=== PATIENT | female | born 1990 | race Caucasian/White ===

== ENCOUNTER 2016-10-29 00:35 | Inpatient (IN) | payer OTHER ==
[~2016-10-29] VITALS: Ht 167.6 cm; Wt 82.1 kg
[2016-10-29] MEDS ORDERED: Lactated Ringer's 1,000 ML IV PRN (01:31)
[2016-10-29] MEDS ORDERED: Hemorrhage Kit, Post Partum XX ONE ×2 (01:35→15:15)
[2016-10-29] MEDS ORDERED: Oxytocin 10 Unit/mL Inj IM PRN ×2 (01:35→15:15)
[2016-10-29] MEDS ORDERED: Methylergonovine 0.2 mg/mL Inj IM PRN ×2 (01:35→15:15)
[2016-10-29] MEDS ORDERED: fentaNYL-PF 50 mCg/mL 2 mL Inj IVPUSH PRN (01:35)
[2016-10-29] MEDS ORDERED: Carboprost 250 mCg/mL Inj IM PRN ×2 (01:35→15:15)
[2016-10-29] MEDS ORDERED: Oxytocin 30 Units/500 mL LR 30 UNITS in IV Premix 1 EACH IV PRN ×3 (01:35→15:15)
[2016-10-29] MEDS ORDERED: Sodium Chloride LOK Flush 10 mL Syringe IVFLUSH PRN (01:35)
[2016-10-29 01:42] LABS: Mean Corpuscular Hemoglobin 28.4 pg (27.0-35.0); Mean Corpuscular Volume 86.5 fL (81-100)
--- NOTE | 2016-10-29 07:29 | PCM.HPOB ---
Subjective Referring Provider: Admitting Physician: Cat Carrion MD Primary Care Physician: Cat Carrion MD Attending Physician: Cat Carrion MD Chief Complaint "water broke" History of Present History of Present Illness Ms. Perez is a 26 y/o woman at 37 weeks 4 days gestation with KENY of 11/15 that was adjusted from her KENY based on LMP who presented to the [facility] after her water broke at around 11:30 PM last night. She states that there was a gush of fluid that was cloudy and clear. It did not have a foul odor. She did not start having contractions until she came to the hospital early this morning. She does not have headache, changes in vision, dizziness, chest pain, upper abdominal pain, or increased leg swelling. She has had increased heartburn during her . Based on ultrasounds, the baby has been in the 99% EFW at 20 weeks gestation and 86% EFW at 35 weeks gestation. labs: blood type A positive, antibody screen negative, Pap smear negative, RPR nonreactive, HIV nonreactive, HBsAg negative, gonorrhea and chlamydia negative, hepatitis C negative, Varicella immune, Rubella immune, TSH 2.060, 1 hour glucose tolerance test within normal limits, GBS negative OB History: (1), Para (0) Past Medical History Obstetrical History: growth by ultrasounds shows 99% EFW at 20 weeks gestation and 86% EFW at 35 weeks gestation Gynecologic History: No history STIs Patient reports receiving Gardisil vaccine and no known abnormal Pap smears Medical History: GERD during Surgical History: Tonsillectomy Hx Tobacco Use: No Smoking Status: Never Smoker Hx Alcohol Use: No Hx Substance Use: No Past Family History Family History Denies any significant family history Living Arrangement: with Family Genetic Screening/Counseling Comment: Declined genetic screening Review of Systems Constitutional: Y: Chills, Dizziness, Fever Eyes: Denies: Blurred Vision, Double Vision, Vision Changes ENT: Denies: Throat Pain Cardiovascular: Denies: Chest Pain, SOB while laying flat Respiratory: Denies: Cough, Pleuritic Chest Pain Gastrointestinal: Reports: Heartburn, Nausea, Vomiting, Denies: Abdominal Pain, Epigastric pain Genitourinary: Denies: Dysuria Neurological: Denies: Dizziness, Numbness Medications Home medications vitamin Ranitidine as needed for heartburn Allergy Coded Allergies: No Known Allergies (Unverified , 10/29/16) Exam Vital Signs T: 37.2 degrees C, BP: 128/76, HR: 64 bpm Exam FHR baseline 140s with moderate variability, accelerations, and no decelerations Constitutional: Well-developed, Well-nourished HEENT: Atraumatic, EOMI, Scleral Anicteric, Mucous Membr Moist/[place] Lungs: Clear to Auscultation, Normal Air Movement Heart: Exam Unremarkable, Regular Rate/Rhythm, Normal S1, Normal S2, No Murmurs /Rubs/Gallops Abdomen: Gravid, Normal bowel sounds Extremities: Pulses Palpable x4, Warm, Edema (trace bilateral lower extremity) Neurological/Psychiatric: Alert, Oriented X3, Cooperative, Mild Distress ( secondary to pain from contractions) Neuro: Grossly Neurologically Intact Additional Information Cervical exam at 05:39 by nursing showed 1 cm, 60 effacement, and -2 position Labs/Diagnostics Labs Item Value Date Time White Blood Count 10.5 th/mm3 H 10/29/16 0118 Hemoglobin 11.2 g/dL L 10/29/16 0118 Hematocrit 34.1 % L 10/29/16 0118 Platelet Count 239 florencia/L 10/29/16 0118 Maternal Blood Type: A (positive) Group B Strep Results: Negative Rubella: Immune Lab History: Negative for: Hx Gonorrhea, Hx HIV, Hx Herpes, Hx Syphilis OB Intrapartum Assessment/Plan Assessment 1. 26 y/o woman at 37 weeks 4 days gestation with KENY of 11/15/2016 that was adjusted from her KENY based on LMP. growth by ultrasounds shows 99% EFW at 20 weeks gestation and 86% EFW at 35 weeks gestation. -In latent phase of labor. -Contraction frequency 3-4 with duration of 60 -Category 1 tracing is normal and reassuring. FHR baseline 140s; variability is normal; accelerations present; no decelerations. -Continue expected management Attending Statement Patient seen and examined. She is doing well, she presents with SROM this AM and contractions Q2-4 minutes. On exam her cervix is 1 and posterior so Carmichael balloon placed at bedside and inflated to 50cc of normal saline. heart tones are reassuring. Will continue expectant management, await carmichael balloon removal, anticipate . Linda Dudley DO Oct 29, 2016 07:29 Cat Carrion MD Oct 31, 2016 11:58
[2016-10-29] MEDS ORDERED: Lactated Ringer's 1,000 ML IV SCH ×2 (09:04→15:11)
[2016-10-29] MEDS ORDERED: Lactated Ringer's 500 ML IV ONE (09:04)
--- NOTE | 2016-10-29 09:04 | PCM.HPANE ---
Patient Data Date of Service: Oct 29, 2016 (0840) Surgeon Admitting Provider:Cat Carrion MD Attending Provider:Cat Carrion MD Primary Care Physician:Cat Carrion MD Other Provider:Jemma Reed Anesthesia Reason for Visit TERM TERM Ht/WT & BMI Body Mass Index Allergies Coded Allergies: No Known Allergies (Unverified , 10/29/16) Past Anesthesia History Anesthesia History: Denies:: Abnormal Airway, Anesthesia Reactions, Difficult Intubation, Fam Anesthesia Reaction, Fam Malignant Hypertherm, Malignant Hyperthermia Medications Hypertension Medication: No Home Meds Incl Beta Mita: No History History of ENT Problems?: No HEENT History: Denies:: Abnormal Airway Cataracts Difficult Intubation Dysphagia Glaucoma Hearing Problem Sinus Problem TMJ Denture Type: None Teeth Condition: Within Normal Limits Hx of Heart Problems?: No Cardiovascular History: Denies:: AICD Abdominal Aortic Aneurism Atrial Fibrillation Cardiac Surgery Chest Pain Congestive Heart Failure Coronary Artery Disease Edema Heart Murmur Hypertension Irregular Heartbeat Pacemaker Peripheral Vascular Rheumatic Fever Thrombophlebitis Valvular Heart Disease Hx of Respiratory Problem?: No Respiratory History: Denies:: Asthma COPD Chest Surgery Cough Dyspnea Emphysema Hemoptysis Oxygen Administration Pneumonia Pulmonary Embolism Tuberculosis Use of C-PAP Machine Use of Inhalers / NEBS Hx Neurologic Problems?: No Neurological History: Denies:: Alzheimer's Disease CVA Dementia Dizziness Headaches Multiple Sclerosis Parkinson's Disease Peripheral Neuropathy Seizures TIA Hx of GI Problems?: No Gastrointestinal History: Denies:: Cirrhosis Diverticulitis Gall Bladder Disease Gastroesphageal Reflux Gastrointestinal Bleeding Heartburn Hepatitis Hiatal Hernia Liver Disease Rectal Bleeding Hx of Problems?: No Genitourinary History: Denies:: HX of Hemodialysis Kidney Stones Urinary Tract Infection Female Hx: Positive for:: Currently Skin History: Denies:: History Skin Disorders? Pressure Ulcers Hx Musculoskeletal Problems?: No Musculoskeletal History: Denies:: Back Injury Degenerative Joint Fibromyalgia Joint Replacement Musculoskeletal Trauma Myasthenia Gravis Osteoarthritis Rheumatoid Arthritis Systemic Lupus Hx of Psycho/Social Problems?: No Psycho Social History: Denies:: Anxiety Bipolar Disorder Hx Depression Suicide Attempt Hx Surgeries?: No Other History: Denies:: Cancer Endocrine Disease Hospitalization Thyroid Disease History Blood Transfusions: Denies:: Accept Blood Products? Blood Transfuse Reaction Blood Transfusions Hx Alcohol Use: NoHx Substance Use: No Smoking Status: Never Smoker Stop/Bang JAY Risk Assessment: Low Risk, <3 Yes Risk Assessment Category Category 1A: Patient has history of documented sleep apnea, and HAS NOT received any narcotic, sedative or anesthesia administration during this stay. Category 1B: Patient has history of documented sleep apnea, and HAS received any narcotic , sedative or anesthesia administration during this stay Category 2: Patient has SUSPECTED Obstructive Sleep Apnea, and HAS received any narcotic , sedative or anesthesia administration during this stay. Category 3: Patient has SUSPECTED Obstructive Sleep Apnea and HAS NOT received narcotic, sedative or anesthesia administration during this stay. Category 4: Outpatient in Procedural Areas with known sleep apnea or who screen positive for High Risk via the STOP/BANG questionnaire. Exam Exam General Appearance: Alert, Oriented X3, Cooperative, Mild Distress (secondary to pain from contractions) HEENT/AIRWAY: MP 1 Lungs: Clear to Auscultation, Normal Air Movement Heart: Exam Unremarkable, Regular Rate/Rhythm, Normal S1, Normal S2, No Murmurs /Rubs/Gallops Meds/Labs/Diagnostics Labs Test 10/29/16 01:18 White Blood Count 10.5th/mm3 (3.8-10.1) Red Blood Count 3.94mil/mm3 (3.90-5.20) Hemoglobin 11.2g/dL (12.0-15.6) Hematocrit 34.1% (35.0-46.0) Mean Corpuscular Volume 86.5fL (81-100) Mean Corpuscular Hemoglobin 28.4pg (27.0-35.0) Mean Corpuscular Hemoglobin Concent 32.8% (32.0-37.0) Red Cell Distribution Width 13.2% (12.3-15.4) Platelet Count 239bil/L (150-400) Plan Impression Patient chart reviewed, patient interviewed and anesthestic plan with risks, benefits, and alternatives discussed, and informed consent obtained. NPO per Anesth. Guidelines: Yes ASA Physical Status: ASA2 Mod Systemic Disease Anesthetic Plan: Epidural Bene/Risks/Altern/Consents: Yes HP Complete Prior to Induction: Yes Sravan Eastman MD Oct 29, 2016 09:04
[2016-10-29] MEDS ORDERED: Atropine 1 mg/10 mL (Code) Syringe IVPUSH PRN (09:05)
[2016-10-29] MEDS ORDERED: EPHEDrine Sulfate 50 mg/mL Inj IVPUSH PRN (09:05)
[2016-10-29] MEDS ORDERED: fentaNYL 2 mCg/mL-Bupiv 0.125% 100 ML EPIDURAL SCH (09:05)
[2016-10-29] MEDS ORDERED: Ondansetron 2 mg/mL 2 mL Inj IVPUSH PRN (09:05)
[2016-10-29] MEDS ORDERED: fentaNYL 2 mCg/mL-Bupivicaine 0.125% 100 mL Premix EPIDURAL ONE (09:06)
[2016-10-29] MEDS ORDERED: Mineral Oil-Heavy 30 mL UDC ONE (13:54)
[2016-10-29] MEDS ORDERED: LANOlin HPA 7 Gm Ointment TOPICAL PRN (15:15)
[2016-10-29] MEDS ORDERED: Benzocaine (Dermoplast) 20% 60 Gm Spray TOPICAL PRN (15:15)
[2016-10-29] MEDS ORDERED: Witch Hazel-Glycerin Pads TOPICAL PRN (15:15)
--- NOTE | 2016-10-29 16:09 | OP ---
[address] [address] OPERATIVE REPORT PATIENT: NAM ESTRADA : 1990 MR#: [id number] ADMIT: 10/29/2016 JOB ID: [id number] DATE OF SURGERY: 10/29/2016 SURGEON: Vinh Espinoza MD. PREOPERATIVE DIAGNOSIS(ES): 1. A 26-year-old, 1, para 0, at 37 weeks and 4 days. 2. Spontaneous rupture of membranes. POSTOPERATIVE DIAGNOSIS(ES): 1. A 26-year-old, 1, para 1. 2. Vaginal delivery at 37 weeks and 4 days. 3. Shoulder dystocia. DELIVERY SUMMARY: The patient is a 26-year-old, 1, para 1 now, who came to labor and delivery on October 28, 2016, with complaint of spontaneous rupture of membranes at 11:30 p.m. Nonstress testing was done. heart rate was reactive, category 1. Patient was admitted for delivery. Vital signs were stable. She received an epidural. Pitocin augmentation was started. It was continued at a low rate because of several variable decelerations. Intrauterine pressure catheter was placed on the morning of October 29, 2016. Pitocin was increased until 200 Raven units were achieved. Because of decelerations, show horse driver was notified about the delivery and was present at delivery. The patient's amniotic fluid was clear. She developed a low-grade fever of 37.5 at around 11 a.m. on October 29, 2016. Patient progressed to full dilation at 1:27 p.m. and started pushing at 1:44 p.m. She delivered the head at 2:55 p.m. There was shoulder dystocia lasting 100 seconds that resolved with Remedios maneuver, followed by Mi maneuver. This was followed by delivery of the . Shoulder dystocia lasted 100 seconds. The was born with Apgars 2 at one minute and 7 at five minutes. The baby was handed off to the waiting show horse driver. Resuscitation was provided. Cord blood gases were sent. Cord blood was sent. The patient had not had any lacerations. Placenta was delivered at 1500, was found to be intact with three-vessel cord. Estimated blood loss was 300 mL.
[2016-10-29] MEDS ORDERED: Sodium Chloride LOK Flush 10 mL Syringe IVFLUSH SCH (16:30)
[2016-10-29] MEDS: oxyCODONE-Acetamin 5-325 mg Tablet PO PRN (19:36)
[2016-10-30] MEDS: oxyCODONE-Acetamin 5-325 mg Tablet PO PRN ×3 (00:20→12:29)
[2016-10-30] MEDS ORDERED: ASCO-294 PO ×2 (07:10→07:12)
[2016-10-30] MEDS ORDERED: DOCU-41 PO (07:10)
[2016-10-30] MEDS ORDERED: FERR-83 PO (07:10)
[2016-10-30] MEDS ORDERED: IBUP800T28 PO (07:10)
[2016-10-30 07:24] LABS: Mean Corpuscular Hemoglobin 28.4 pg (27.0-35.0); Mean Corpuscular Volume 87.2 fL (81-100)
--- NOTE | 2016-10-30 07:41 | PCM.DIOB ---
Obstetrical Disch Instruction Date of Service: Oct 30, 2016 Dates of Hospitalization Date of Hospital Admission Oct 29, 2016 at 00:50 Providers Admitting Physician: Cat Carrion MD Primary Care Physician: Cat Carrion MD Attending Physician: Cat Carrion MD Diet Discharge Diet: No restrictions Activity Discharge Activity-General: Pelvic Rest for 6 weeks, Balance rest and activity Dressing and Incisional Care Hygiene: May shower Additional Instructions Discharge Instructions Continue your vitamin. Please take the iron and vitamin c together for your anemia. Iron can give you constipation so you have also been given a prescription for docusate to keep you regular. Be sure to follow up in 6 weeks at [facility]. Pelvic rest for 6 weeks (nothing per vagina including intercourse, tampons) If you have a fever greater than 100.4, please call [facility]. There is always someone corporate communications specialist to talk to. If you have an increase in bleeding, call [facility]. If you have a lot of bleeding suddenly, especially if you have symptoms of dizziness & weakness with it, get emergency help. If you start experiencing extreme depression, especially if you feel that you are a danger to yourself or your family, seek emergency help. You have been through a lot -- BE SURE TO TAKE CARE OF YOURSELF. You have been sent home with the following prescriptions: - Colace 100 mg twice a day as needed for constipation. - Ferrous sulfate 325 mg every day. - Vitamin C 500 mg every day. Take with iron. - Ibuprofen 800mg take 1 tab every 8 hours as needed for pain. Take with a meal. Follow-up in 6 weeks with [facility]. Follow Up Plan Follow-up Provider (F9): [facility] Follow-up appointment: Weeks (6 weeks) Call your provider for: Fever or Chills, Shortness of breath, Heavy vaginal bleeding, Excessive constipation, Vaginal discomfort, Red painful breasts, Other (swelling in one leg or painful swelling in your legs) Linda Dudley DO Oct 30, 2016 07:21
[2016-10-30 11:50] VITALS: BP 116/59; PULSE 71; RESP 16
--- NOTE | 2016-10-31 00:58 | PCM.DC.OB ---
Obstetrical Discharge Summary Date of Service Oct 31, 2016 Date of hospital admission Oct 29, 2016 at 00:50 Date of Discharge: Oct 30, 2016 Providers Admitting Physician: Cat Carrion MD Primary Care Physician: Cat Carrion MD Attending Physician: Cat Carrion MD Diagnosis at Time of Discharge 1. 26 y/o now woman at 37 weeks 4 days gestation with KENY of 2016 that was adjusted from her KENY based on LMP. Status post normal spontaneous vaginal delivery on 10/29/14. 2. Shoulder dystocia Problems: Invasive procedures Vaginal delivery Date of Procedure: Oct 29, 2016 Brief History and Physical: From the history and physical performed on 10/29/16: Ms. Perez is a 26 y/o woman at 37 weeks 4 days gestation with KENY of 11/15 that was adjusted from her KENY based on LMP who presented to the [facility] after her water broke at around 11:30 PM last night. She states that there was a gush of fluid that was cloudy and clear. It did not have a foul odor. She did not start having contractions until she came to the hospital early this morning. She does not have headache, changes in vision, dizziness, chest pain, upper abdominal pain, or increased leg swelling. She has had increased heartburn during her . Based on ultrasounds, the baby has been in the 99% EFW at 20 weeks gestation and 86% EFW at 35 weeks gestation. labs: blood type A positive, antibody screen negative, Pap smear negative, RPR nonreactive, HIV nonreactive, HBsAg negative, gonorrhea and chlamydia negative, hepatitis C negative, Varicella immune, Rubella immune, TSH 2.060, 1 hour glucose tolerance test within normal limits, GBS negative Hospital Course: 1. 26 y/o now woman at 37 weeks 4 days gestation with KENY of 2016 that was adjusted from her KENY based on LMP status post normal spontaneous vaginal delivery on 10/29/14 -[place] female was born with Apgars 2 at one minute and 7 at five minutes. She weighed 3492 g. She is her daughter. -On day of discharge, patient was eating and drinking well. She did not have uncontrolled pain. Her lochia was normal. She did not have fever, chills, or dysuria. She was ambulating without difficulty. On exam, her lungs were clear to auscultation and her heart was a regular rate and rhythm with normal S1 and S2. Her abdomen was soft and uterus was firm. Her legs had mild swelling bilaterally at the feet but were not tender. 2. Shoulder dystocia -During delivery it lasted 100 seconds. Ascorbate Calcium (Vitamin C) 500 Mg Tablet 500 MG PO DAILY Prescribed by: JENNY NGUYEN DO Docusate Sodium (Colace) 100 Mg Capsule 100 MG PO BID PRN PRN For Constipation Prescribed by: JENNY NGUYEN DO Ferrous Sulfate (Ferrous Sulfate) 325 Mg Tablet 325 MG PO DAILY Prescribed by: JENNY NGUYEN DO Ibuprofen (Ibuprofen) 800 Mg Tablet 800 MG PO TID PRN PRN For Pain Prescribed by: JENNY NGUYEN DO Discharge Diet: No restrictions Discharge Activity-General: Pelvic Rest for 6 weeks, Balance rest and activity Patient instructions Continue your vitamin. Please take the iron and vitamin c together for your anemia. Iron can give you constipation so you have also been given a prescription for docusate to keep you regular. Be sure to follow up in 6 weeks at [facility]. Pelvic rest for 6 weeks (nothing per vagina including intercourse, tampons) If you have a fever greater than 100.4, please call [facility]. There is always someone gas controller to talk to. If you have an increase in bleeding, call [facility]. If you have a lot of bleeding suddenly, especially if you have symptoms of dizziness & weakness with it, get emergency help. If you start experiencing extreme depression, especially if you feel that you are a danger to yourself or your family, seek emergency help. You have been through a lot -- BE SURE TO TAKE CARE OF YOURSELF. You have been sent home with the following prescriptions: - Colace 100 mg twice a day as needed for constipation. - Ferrous sulfate 325 mg every day. - Vitamin C 500 mg every day. Take with iron. - Ibuprofen 800mg take 1 tab every 8 hours as needed for pain. Take with a meal. [facility] in 6 [facility] with [facility]. copies to: Vinh Espinoza MD, Marissa L DO Oct 31, 2016 00:58
== END 2016-10-30 12:30 | disposition home or self-care (01) | DRG 774 ==
LOC: FBCO 00:35 → FBC 00:50
PROVIDERS: ADMIT Obstetrics & Gynecology; ATTEND Obstetrics & Gynecology
PROC: 10E0XZZ Delivery of Products of Conception, External Approach (ICD-10-PCS; principal; 2016-10-29)
DX: O66.0 Obstructed labor due to shoulder dystocia (principal); O75.2 Pyrexia during labor, not elsewhere classified; Z3A.37 37 weeks gestation of pregnancy; Z37.0 Single live birth